=== PATIENT | male | born 1975 | race Caucasian/White ===

== ENCOUNTER 2020-10-08 22:56 | Inpatient (IN) | payer MEDICAID, OTHER ==
[~2020-10-08] VITALS: Ht 177.8 cm; Wt 100.5 kg
[2020-10-09 02:11] LABS: INR 1.12 (0.9-1.15)
[2020-10-09 02:14] LABS: Basophils # (auto) 0.1 10 ^3/uL (0-0.2); Basophils % (auto) 1.7 % (0.0-2.0); Eosinophils # (auto) 0 10 ^3/uL (0-0.8); Eosinophils % (auto) 0.5 % (0.0-7.0); Hemoglobin 18.2 g/dL (13.5-17.5); Lymphocytes # (auto) 2.7 10 ^3/uL (0.4-5.4); Mean Corpuscular Hemoglobin 34.9 pg (28.0-32.0); Mean Corpuscular Hgb Conc. 34.9 g/dL (32.0-36.0); Mean Corpuscular Volume 100.1 fL (80.0-100.0); Monocytes # (auto) 0.7 10 ^3/uL (0-1.3); Monocytes % (auto) 12.6 % (0.0-12.0); Neutrophils # (auto) 1.8 10 ^3/uL (1.6-8.6); Neutrophils % (auto) 34.2 % (37.0-80.0); Nucleated Red Blood Cells % 0.2 %; Platelet Count (auto) 347 10^3/uL (140-450); Red Cell Distribution Width 14.5 % (11.8-14.3); White Blood Cell 5.2 10^3/uL (4.4-10.8)
[2020-10-09 02:19] LABS: Albumin 3.7 g/dL (3.4-5.0); BUN/Creatinine Ratio 10.3; Calcium 8.4 mg/dL (8.5-10.1); Magnesium 2.2 mg/dL (1.6-2.6); Potassium 4.2 mmol/L (3.5-5.1)
[2020-10-09 02:22] LABS: Bilirubin, Total 0.3 mg/dL (0.2-1.0)
[2020-10-09] MEDS ORDERED: LORazepam 2MG/ML-1ML VIAL IV ONE (02:45)
[2020-10-09] MEDS ORDERED: ONDANSETRON HCL 4 MG/2 ML VIAL IV ONE (02:45)
[2020-10-09] MEDS ORDERED: SODIUM CHLORIDE 0.9% 1,000 ML IV ONE ×2 (02:45→12:00)
[2020-10-09] MEDS ORDERED: NITROGLYCERIN 0.4 MG SL TAB SL PRN (05:30)
[2020-10-09] MEDS ORDERED: ONDANSETRON HCL 4 MG/2 ML VIAL IV PRN (05:30)
[2020-10-09] MEDS ORDERED: SODIUM CHLORIDE 0.9% 500 ML IV ONE (05:30)
[2020-10-09] MEDS ORDERED: chlordiazePOXIDE HCL 25 MG CAP PO PRN (05:30)
[2020-10-09] MEDS ORDERED: MORPHINE SULF INJ 2 MG/ML SYRINGE 1ML IV PRN (05:30)
[2020-10-09] MEDS ORDERED: TEMAZEPAM 15 MG CAP PO PRN (05:30)
[2020-10-09 09:00] VITALS: BP 151/89
[2020-10-09] MEDS: THIAMINE HCL 100 MG TAB PO SCH (09:43)
[2020-10-09] MEDS: FAMOTIDINE 20 MG TAB PO SCH ×2 (09:43→22:12)
[2020-10-09] MEDS ORDERED: LORazepam 0.5 MG TAB PO PRN (12:00)
[2020-10-09] MEDS ORDERED: LORazepam 2MG/ML-1ML VIAL IV PRN (12:00)
[2020-10-09] MEDS: FOLIC ACID 1 MG, MULTIPLE VITAMIN 10 ML, MAGNESIUM SULF SDV 50% 8 MEQ, THIAMINE INJ 100... INJ SCH ×5 (12:25)
[2020-10-09 13:00] VITALS: BP 145/88
[2020-10-09] MEDS: SODIUM CHLORIDE 0.9% 1,000 ML IV SCH ×2 (16:19→18:36)
[2020-10-09 16:46] VITALS: BP 146/88
[2020-10-09 22:00] VITALS: BP 137/89
[2020-10-10] MEDS: SODIUM CHLORIDE 0.9% 1,000 ML IV SCH ×2 (01:20→09:08)
[2020-10-10 05:00] VITALS: BP 138/69
[2020-10-10 07:55] LABS: Basophils # (auto) 0.2 10 ^3/uL (0-0.2); Eosinophils # (auto) 0.2 10 ^3/uL (0-0.8); Eosinophils % (auto) 3.1 % (0.0-7.0); Hematocrit 46.7 % (41.0-53.0); Hemoglobin 16.1 g/dL (13.5-17.5); Lymphocytes # (auto) 1.9 10 ^3/uL (0.4-5.4); Lymphocytes % (auto) 28.9 % (10.0-50.0); Mean Corpuscular Hemoglobin 34.3 pg (28.0-32.0); Mean Corpuscular Hgb Conc. 34.4 g/dL (32.0-36.0); Mean Corpuscular Volume 99.8 fL (80.0-100.0); Monocytes % (auto) 14.6 % (0.0-12.0); Neutrophils # (auto) 3.4 10 ^3/uL (1.6-8.6); Neutrophils % (auto) 50.4 % (37.0-80.0); Nucleated Red Blood Cells % 0.2 %; Platelet Count (auto) 308 10^3/uL (140-450); Red Blood Cells 4.68 10^6/uL (4.5-5.90); Red Cell Distribution Width 14.2 % (11.8-14.3); White Blood Cell 6.7 10^3/uL (4.4-10.8)
[2020-10-10 08:16] LABS: BUN/Creatinine Ratio 10.4; Calcium 8.2 mg/dL (8.5-10.1); Potassium 4.4 mmol/L (3.5-5.1)
[2020-10-10 09:00] VITALS: BP 142/86
[2020-10-10] MEDS: THIAMINE HCL 100 MG TAB PO SCH (11:03)
[2020-10-10] MEDS: FAMOTIDINE 20 MG TAB PO SCH (11:04)
[2020-10-10] MEDS ORDERED: FOLI1TAB6 PO (11:44)
[2020-10-10] MEDS ORDERED: CHL25C PO (11:44)
[2020-10-10] MEDS ORDERED: THIA100T5 PO (11:44)
[2020-10-10] MEDS ORDERED: MULTCAP45 PO (11:44)
[2020-10-10 11:57] VITALS: BP 142/86
[2020-10-10] MEDS: FOLIC ACID 1 MG, MULTIPLE VITAMIN 10 ML, MAGNESIUM SULF SDV 50% 8 MEQ, THIAMINE INJ 100... INJ SCH ×5 (12:25)
== END 2020-10-10 14:20 | disposition home or self-care (01) | DRG 775 ==
LOC: ER 22:56 → TELE 10-09 05:20 → TELE-CENTR 10-09 07:50
PROVIDERS: ADMIT Nurse Practitioner; ATTEND Family Medicine
DX: F10.231 Alcohol dependence with withdrawal delirium (principal); N17.0 Acute kidney failure with tubular necrosis; E86.0 Dehydration; F10.229 Alcohol dependence with intoxication, unspecified; F41.9 Anxiety disorder, unspecified; K21.9 Gastro-esophageal reflux disease without esophagitis; Z20.822 Contact with and (suspected) exposure to COVID-19; Z88.0 Allergy status to penicillin; Y90.6 Blood alcohol level of 120-199 mg/100 ml
CPT/HCPCS: 36415; 80048; 80053; 80320; 83605; 83690; 83735; 85025; 85610; 87426; 96361; 96374; 96375; G0378; J2405